=== PATIENT | female | born 1995 | race Caucasian/White ===

== ENCOUNTER 2022-01-30 17:32 | Emergency (ER) | payer MEDICAID, SELFPAY ==
[2022-01-30 17:56] VITALS: BP 120/76; PULSE 112; RESP 18; TEMP 36.3; O2SAT 100; BMI 30.3
--- NOTE | 2022-01-30 18:19 | ED.GENADULT ---
HPI - General Adult General Time Seen by Provider: 18:15 Date Seen: 01/30/22 Chief complaint: Laceration/Wound Stated complaint: Facial Pressure Time Seen by Provider: 01/30/22 18:06 Source: patient Mode of arrival: ambulatory Limitations: no limitations History of Present Illness HPI narrative: 26-year-old female who comes in with concern for pressure and wound of the left nasal bridge. Patient said she had a couple of ?pimples? in this area and pulled out an ingrown eyebrow a couple weeks ago. She has had continued pain and swelling in the area since then. She is using an antibiotic cream on the area. She says she had a syncopal episode last night when she stood up, no preceding chest pain or palpitations and feels fine today. And she notes a lot of pressure around her eyes. No fevers or chills. Related Data Previous Rx's Medication Instructions Recorded clindamycin HCl 150 mg capsule 150 mg PO TID #15 cap 01/30/22 Allergies Allergy/AdvReac Type Severity Reaction Status Date / Time buspirone [From BuSpar] AdvReac Intermediate Anxiety Verified 01/30/22 18:06 paxil AdvReac Intermediate Anxiety Uncoded 01/30/22 18:06 Review of Systems Status of ROS: Reports: 10 or more systems reviewed and unremarkable except as noted in History and below Exam Const: Vital Signs, click to edit/add: Vital Signs - 24 hr 01/30/22 17:56 Temperature 97.3 F L Pulse Rate [Pulse Oximeter] 112 H Respiratory Rate 18 Blood Pressure [Ri t Upper Arm] 120/76 Pulse Oximetry 100 Documenting provider has reviewed patient's vital signs: yes Common normals: no apparent distress, oriented x3, alert and well nourished HENMT: Common normals: normocephalic, head/scalp atraumatic and external ears normal Head and scalp: normocephalic and atraumatic External ear: external ears normal Other: 4 mm x 2 mm full-thickness ulceration the left nasal bridge with mild surrounding erythema extending to the superior orbital rim and inferiorly along the nose. Eye: Common normals: PERRL and conjunctivae normal Conjunctiva: conjunctiva(e) normal Pupil: PERRL Other: External ocular motions intact without pain, no proptosis Neck & C-Spine: Common normals: full ROM, no lymphadenopathy and supple Chest: Common normals: palpation of chest normal Resp: Common normals: normal respiratory effort and clear to auscultation bilaterally Auscultation: clear to auscultation bilaterally Cardio: Common normals: regular rhythm and no murmurs Rate: tachycardic Rhythm: regular rhythm GI: Common normals: Normal to inspection, nondistended, normoactive bowel sounds present, soft to palpation and non-tender Palpation: soft : Common normals: no CVA tenderness Bladder/kidney exam: no CVA tenderness Back & Pelvis: Common normals: no CVA tenderness and thoracic and lumbar spine normal to inspection Extremity: Common normals: normal to inspection, full ROM and no pedal edema Neuro: Common normals: oriented x3, CN's II-XII intact bilaterally and no focal motor deficits Sensorium/orientation: alert Psych: Common normals: mental status grossly normal Skin: Common normals: no rashes or lesions noted General skin exam: no rashes or lesions noted Course Reevaluation(s) Reevaluation #1: Sign-out Dr. Zechariah parr. If labs are reassuring, patient can be discharged with outpatient follow-up in wound clinic. Time: 20:00 Vital Signs Vital signs: Initial Vital Signs Temperature 97.3 F L 01/30/22 17:56 Temperature Source Temporal Artery Scan 01/30/22 17:56 Pulse Rate 112 H 01/30/22 17:56 Pulse Rhythm 01/30/22 17:56 Respiratory Rate 18 01/30/22 17:56 Blood Pressure 120/76 01/30/22 17:56 Blood Pressure Mean 90 01/30/22 17:56 Blood Pressure Position Sitting 01/30/22 17:56 Pulse Oximetry 100 01/30/22 17:56 Oxygen Delivery Method 01/30/22 17:56 Vital Signs Temperature 97.3 F L 01/30/22 17:56 Pulse Rate 112 H 01/30/22 17:56 Respiratory Rate 18 01/30/22 17:56 Blood Pressure 120/76 01/30/22 17:56 Pulse Oximetry 100 01/30/22 17:56 Temperature 97.3 F L 01/30/22 17:56 Pulse Rate 112 H 01/30/22 17:56 Respiratory Rate 18 01/30/22 17:56 Blood Pressure 120/76 01/30/22 17:56 Pulse Oximetry 100 01/30/22 17:56 Medical Decision Making MDM Narrative Medical decision making narrative: Patient seen and examined, prior records reviewed. Patient with what sounds like a folliculitis or pimple of the left nasal bridge which now has created a laceration with some surrounding swelling and erythema. External ocular motions are intact, no proptosis to suggest retrobulbar infection. Patient will given Rocephin in the emergency department well as IV fluids and plan to discharge with clindamycin. Discussed wound care as well. Medical Records Medical records reviewed: Yes I reviewed the patient's medical records Lab Data Lab results reviewed: Yes I reviewed the patient's lab results Discharge Plan Discharge Clinical Impression: Open wound of face Patient Disposition: Home, Self-Care Condition: Stable Instructions: Wound Healing and Your Diet (ED) Additional Instructions: Wash daily with soap and water. Apply antibiotic ointment as prescribed not cream. Take antibiotics as prescribed. [facility] with [facility] Address + Phone [address] [place] [id number] Phone:? Activity Level: No Restrictions Discharge Diet: Regular Prescriptions: New clindamycin HCl 150 mg capsule 150 mg PO TID Qty: 15 0RF Follow Up/Referrals: Krishna Bell MD [Primary Care Provider] - Stand Alone Forms: [employer] Info Instructions
[2022-01-30 19:37] LABS: Basophils Absolute Auto 0.04 K/uL (0.00-0.30); Basophils Percent Auto 0.6 % (0.0-3.0); Eosinophils Absolute Auto 0.05 K/uL (0.00-0.50); Eosinophils Percent Auto 0.8 % (0.0-7.0); Hematocrit 42.5 % (33.0-51.0); Hemoglobin* 14.7 gm/dL (12.0-16.0); Lymphocytes Absolute Auto 1.75 K/uL (0.90-2.90); Lymphocytes Percent Auto 26.5 % (20-44); Mean Corpuscular HGB Conc 35 gm/dL (32-36); Mean Corpuscular Hemoglobin 31 pg (26-34); Mean Corpuscular Volume 89 fL (80-100); Monocytes Percent Auto 6.5 % (0.0-11.0); Neutrophils Absolute Auto 4.34 K/uL (1.7-7.0); Neutrophils Percent Auto 65.6 % (42.0-72.0); Platelet Count* 226 K/uL (140-440); RDW Coefficient of Variation % 12.3 % (11.5-15.5); Red Blood Count 4.79 m/uL (4.00-5.20); White Blood Count* 6.61 K/uL (4.50-11.00)
[2022-01-30] MEDS: 0.9 % SODIUM CHLORIDE 1000 ml 1,000 ML IV (19:39)
[2022-01-30 19:40] VITALS: BP 119/64; PULSE 62; RESP 18; O2SAT 97
[2022-01-30] MEDS: cefTRIAXone 1 GM in 0.9 % SODIUM CHLORIDE Mini-bag 100 ML IVPB (19:40)
[2022-01-30] MEDS: KETOROLAC 15 MG/ML inj IVP (19:41)
[2022-01-30 19:51] LABS: Chloride* 105 mmol/L (96-114); Potassium* 4.3 mmol/L (3.6-5.1); Sodium* 138 mmol/L (135-149)
[2022-01-30 19:54] LABS: Blood Urea Nitrogen* 17 mg/dL (5-24); Carbon Dioxide* 28 mmol/L (20-32); Creatinine* 0.7 mg/dL (0.5-1.5); Est. Creatinine Clearance* 120.51; Estimated Glomerular Filt Rate 124 ml/min
[2022-01-30 19:55] LABS: Calcium* 9.1 mg/dL (8.4-10.6); Glucose* 92 mg/dL (60-115)
[2022-01-30 19:56] LABS: Slide Review Reflex No
== END 2022-01-30 21:30 | disposition home or self-care (01) ==
PROVIDERS: Emergency Provider Family Medicine; PCP Family Medicine
DX: S01.80XA Unspecified open wound of other part of head, initial encounter (principal); L08.9 Local infection of the skin and subcutaneous tissue, unspecified
CPT/HCPCS: 36415; 80048; 85025; 96361; 96374; 96375; 99284; J0696; J1885; J7030

== ENCOUNTER 2023-10-08 17:46 | Emergency (ER) | payer BC, SELFPAY ==
[2023-10-08 17:52] VITALS: BP 135/82; PULSE 93; RESP 18; TEMP 36.4; O2SAT 100; BMI 26.6
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
== END 2023-10-08 18:56 | disposition home or self-care (01) ==
LOC: ED 18:56
PROVIDERS: Emergency Provider Emergency Medicine; PCP Family Medicine
DX: M54.6 Pain in thoracic spine (principal); V43.52XA Car driver injured in collision with other type car in traffic accident, initial encounter
CPT/HCPCS: 99283